=== PATIENT | male | born 1965 | race Caucasian/White ===

== ENCOUNTER 2021-07-13 13:35 | Day surgery (SDC) | payer OTHER ==
[2021-07-11 10:13] VITALS: BMI 34.4
--- NOTE | 2021-07-13 06:49 | P.GSHP ---
History of Present Illness H&P Date: 07/13/21 CHIEF COMPLAINT: Back mass HISTORY OF PRESENT ILLNESS: The patient is a 56 year-old male with history of mass along the back symptomatic over 6 months. He presents today for surgical excision. PAST MEDICAL HISTORY: Please see list. PAST SURGICAL HISTORY: Please see list. MEDICATIONS: Please see list. ALLERGIES: Please see list. SOCIAL HISTORY: Please see list. FAMILY HISTORY: No reports of Crohn disease or ulcerative colitis. REVIEW OF ORGAN SYSTEMS: CONSTITUTIONAL: No reports of fevers or chills. GI: Denies any blood in stools or constipation. PHYSICAL EXAM: VITAL SIGNS: Stable Musculoskeletal: No clubbing cyanosis or edema SKIN: Right upper back 6 cm GENERAL: Well developed and in no acute distress. Pleasant. HEENT: No sclera icterus. Extraocular movements grossly intact. Moist buccal mucosa. Head is atraumatic, normocephalic. Hears conversational speech. No nasal drainage. NECK: Supple without lymphadenopathy. No JV distention. CHEST: Non-labored respirations and equal bilateral excursions. CARDIOVASCULAR: Regular rate and rhythm. Palpable 2+ radial pulses. ABDOMEN: Soft. Non-tender. Nondistended. NEUROLOGIC: No focal or lateralizing signs. PSYCH: Appropriate affect. Alert and oriented to person, place and time. ASSESSMENT: 1. 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 PLAN: 1. Excision described. 2. Time of recovery of one to two weeks reviewed. 3. Given location, general anesthetic described. 4. Patient is at elevated risk due to general anesthetic. Past Medical History Past Medical History: No Reported History History of Any Multi-Drug Resistant Organisms: None Reported Past Surgical History: Hernia Repair Additional Past Surgical History / Comment(s): guy. inguinal hernia repair, vasectomy, colonoscopies Past Anesthesia/Blood Transfusion Reactions: No Reported Reaction Smoking Status: Current every day smoker - Past Family History Mother Family Medical History: Cancer Additional Family Medical History / Comment(s): colon Medications and Allergies Home Medications Medication Instructions Recorded Confirmed Type Testosterone Enanthate [Xyosted] 1 ml SQ Q14D 07/11/21 07/11/21 History Allergies Allergy/AdvReac Type Severity Reaction Status Date / Time codeine Allergy "passed Verified 07/11/21 10:00 out"
[~2021-07-13 13:35] MED LIST: ACETAMINOPHEN TAB 500 MG TAB PO STA; GABAPENTIN 300 MG CAP PO STA; HEPARIN SODIUM,PORCINE/PF 5,000 UNIT/0.5 ML SYRINGE SQ PRN; MELOXICAM 7.5 MG TAB PO SCH; Pre Op ABX Message 1 EACH MISC MISCELLANE ONE
[2021-07-13] MEDS ORDERED: LACTATED RINGERS 1,000 ML IV SCH (13:54)
[2021-07-13] MEDS ORDERED: ONDANSETRON 4 MG/2 ML VIAL IVP ONE (14:04)
[2021-07-13] MEDS ORDERED: DEXAMETHASONE SOD PHOSPHATE 4 MG/ML 1 ML VIAL IVP ONE (14:05)
[2021-07-13] MEDS ORDERED: MIDAZOLAM 2 MG/2 ML VIAL IVP ONE (16:07)
[2021-07-13] MEDS ORDERED: MIDAZOLAM 2 MG/2 ML VIAL ONE (16:53)
[2021-07-13] MEDS ORDERED: .fentaNYL (PF) 50 MCG/ML 2 ML AMP ONE (16:53)
[2021-07-13] MEDS ORDERED: PROPOFOL 10 MG/ML 20 ML VIAL IV ONE (16:53)
[2021-07-13] MEDS ORDERED: SUCCINYLCHOLINE CHLORIDE 100 MG/5 ML SYR IV ONE (16:53)
[2021-07-13] MEDS ORDERED: LIDOCAINE 1% INJ 10MG/ML (20 ML MDV) ONE (16:53)
[2021-07-13] MEDS ORDERED: BUPIVACAIN-EPI 0.25%-1:200,000 30 ML VIAL SQ ONE (17:01)
[2021-07-13] MEDS ORDERED: LACTATED RINGERS 1,000 ML IV ONE (17:30)
[2021-07-13 18:24] VITALS: TEMP 98.3
--- NOTE | 2021-07-13 18:24 | P.OP ---
Date of Procedure: 07/13/21 Description of Procedure: SURGEON: ROSY JOSHUA MD [employer]LECT[employer]ICIAN: None. PREOPERATIVE DIAGNOSES: 1. Right upper back tumor 2. Obesity due to excess calories, BMI of 34.2 POSTOPERATIVE DIAGNOSES: 1. Deep subfascial/submuscular right upper back tumor, 4 x 3 cm 2. Obesity due to excess calories, BMI of 34.2 PROCEDURES PERFORMED: 1. Excision of deep subfascial/submuscular right upper back mass, 4 x 3 cm 2. Intermediate layer closure right upper back incision, 7-cm Anesthesia: GETA, local Estimated Blood Loss (ml): 5 Pathology: other (back mass) Condition: stable Disposition: same day COMPLICATIONS: None. Operative Findings: 1. Excision of deep subfascial lipoma left upper back tumor 4 x 3 cm INDICATIONS: The patient is a 56-year-old male who presents with symptomatic right upper back tumor. Benefits and risks of surgical intervention were described including bleeding, infection, seroma, pain and recurrence. Informed consent was obtained. DESCRIPTION OR PROCEDURE: In the preoperative area, the area of concern was marked with indelible marker. Patient was brought into the operating room. After general induction, he was positioned in left lateral decubitus position. The back was prepped and draped in a standard sterile fashion with ChloraPrep. Timeout protocol was confirmed with the surgical team regarding the patient's name, procedure to be performed including preoperative medications. DVT prophylaxis was confirmed. A field block was placed of the right lower back. An transverse incision using #15 blade was made along the marking into the dermis and subcutaneous tissue. Electro-Bovie cautery was used to enter deep into the fascia/intramuscular where a fatty multilobulated tumor was removed in piecemeal 4 x 3 cm. The tumor was deep to the fascial insertion of the trapezius muscle. 0 Vicryl for the fascia and deep subcutaneous tissue followed by 3-0 Monocryl in a running subcuticular fashion was placed along the dermis. The skin was cleansed and Exofin tape with liquid was applied. The incision was covered with Optifoam dressing. At the end of the procedure, needle, sponge, and instrument count was verified correct by salesperson surgical appliances. The patient tolerated the procedure well. Plan - Discharge Summary Discharge Rx Participant: Yes New Discharge Prescriptions: New Acetaminophen Tab [Tylenol Tab] 1,000 mg PO Q6HR PRN #30 tablet PRN Reason: Pain Ibuprofen [Motrin] 600 mg PO Q8HR PRN #30 tab PRN Reason: Pain Continue Testosterone Enanthate [Xyosted] 1 ml SQ Q14D Discharge Medication List Testosterone Enanthate [Xyosted] 1 ml SQ Q14D 07/11/21 [History] Acetaminophen Tab [Tylenol Tab] 1,000 mg PO Q6HR PRN #30 tablet 07/13/21 [Rx] Ibuprofen [Motrin] 600 mg PO Q8HR PRN #30 tab 07/13/21 [Rx] Follow up Appointment(s)/Referral(s): Rosy Joshua MD [STAFF PHYSICIAN] - 07/20/21 (DO NOT REMOVE DRESSING. SEE IN OFFICE 07/20/21) Patient Instructions/Handouts: Excision of Skin Lesion (GEN) Activity/Diet/Wound Care/Special Instructions: NO WIDE MOTIONS OF THE SHOULDERS/ARMS FOR 1 WEEK. NO BENDING AT THE HIPS WHILE SITTING NO EXTREME STRETCHING OF THE BACK See instructions on dressing. DO NOT REMOVE DRESSING. No lifting over 10 pounds in 2 weeks, Jul 27 May shower. No bath tub soaks for two weeks, Jul 27 Diet as tolerated. Discharge Disposition: HOME SELF-CARE
[2021-07-13] MEDS ORDERED: KETOROLAC 30 MG/ML 1 ML VIAL ONE (18:45)
[2021-07-13] MEDS ORDERED: HYDROmorphone 0.5 MG/0.5 ML SYRINGE IVP ONE (18:47)
[2021-07-13] MEDS ORDERED: KETOROLAC 15 MG/ML 1 ML VIAL IVP ONE ×2 (18:47→18:55)
[2021-07-13 19:20] VITALS: BP 122/77; PULSE 77; RESP 18
== END 2021-07-13 19:38 | disposition home or self-care (01) ==
LOC: OR 13:35
PROVIDERS: ATTEND Surgery Plastic and Reconstructive Surgery
DX: D17.1 Benign lipomatous neoplasm of skin and subcutaneous tissue of trunk (principal); Z98.52 Vasectomy status; Z98.890 Other specified postprocedural states; F17.200 Nicotine dependence, unspecified, uncomplicated; Z80.0 Family history of malignant neoplasm of digestive organs; E66.09 Other obesity due to excess calories; Z68.34 Body mass index [BMI] 34.0-34.9, adult; Z79.890 Hormone replacement therapy; Z88.5 Allergy status to narcotic agent
CPT/HCPCS: 88304; 21932; J2250; J1100; J0690; J2405; J2001; J3010; J1885; J0330; J2704; J1170; J1644